=== PATIENT | female | born 1985 | race African-American/Black ===

== ENCOUNTER 2019-03-13 01:23 | Emergency (ER) | payer OTHER ==
[~2019-03-13] VITALS: Ht 157.5 cm; Wt 90.7 kg
[2019-03-13] MEDS ORDERED: GLUCOPHAGE XR500 MG PO (01:37)
[2019-03-13] MEDS ORDERED: LATUDA20 MG PO (01:37)
[2019-03-13] MEDS ORDERED: LEXAPRO 10 MG T10 M2 PO (01:38)
[2019-03-13 02:35] LABS: URINE BILIRUBIN 1+ (Negative); URINE BLOOD 1+ (Negative); URINE CLARITY SL CLOUDY; URINE COLOR YELLOW; URINE GLUCOSE-RANDOM* NEGATIVE (Negative); URINE KETONES 3+ (Negative); URINE LEUKOCYTES 2+ (Negative); URINE NITRITE NEGATIVE (Negative); URINE PROTEIN (DIPSTICK) 2+ (Negative)
[2019-03-13 02:38] LABS: ICTOTEST (BILI CONFIRMATORY) Positive (Negative); URINE REDUCING SUBSTANCE 0 %
[2019-03-13 02:42] LABS: ABSOLUTE NEUTROPHILS 7.8 thou/uL (1.4-8.2); BASOPHILS 0.3 % (0.0-2.0); EOSINOPHILS 0.1 % (0.0-3.0); HEMATOCRIT 38.1 % (37.0-47.0); LYMPHOCYTES 18.1 % (24.0-44.0); MCH 31.8 pg (26.0-34.0); MCHC 34.2 g/dL (28.0-37.0); PLATELET COUNT 306 thou/uL (150-400); POLYS 77.5 % (36.0-66.0); RDW 14.4 % (10.5-14.5); WBC 10.1 thou/uL (4.0-11.0)
[2019-03-13 02:44] LABS: BACTERIA >30 Many /HPF (None Seen); CASTS None Seen /LPF (None Seen); CRYSTALS None Seen /LPF (None Seen); MUCUS 4-6 Moderate strn/LPF (None Seen); SQUAMOUS >10 Many /LPF (0-3)
[2019-03-13 02:50] LABS: CALCIUM 9.1 mg/dL (8.5-10.1); CREATININE 0.9 mg/dL (0.6-1.0); POTASSIUM 3.5 mmol/L (3.5-5.1)
[2019-03-13] MEDS ORDERED: KEFLEX500 M1 PO (03:14)
[2019-03-13] MEDS ORDERED: ZOFRAN4 MG PO (03:14)
[2019-03-13 03:30] VITALS: BP 118/67
== END 2019-03-13 03:31 | disposition home or self-care (01) ==
LOC: ER 01:23
PROVIDERS: Student in an Organized Health Care Education/Training Program
DX: N39.0 Urinary tract infection, site not specified (principal); A59.9 Trichomoniasis, unspecified; E11.9 Type 2 diabetes mellitus without complications; F17.210 Nicotine dependence, cigarettes, uncomplicated; Z98.51 Tubal ligation status

== ENCOUNTER → 2020-10-26 | Emergency (ER) | payer OTHER ==
[~2020-10-26] VITALS: Ht 157.5 cm; Wt 81.2 kg
[~2020-10-26] MED LIST: AZITHROMYCIN500 MG PO; FLAGYL500 M1 PO; GLUCOPHAGE XR500 MG PO; KEFLEX500 M1 PO; LATUDA20 MG PO; LEXAPRO 10 MG T10 M2 PO; ZOFRAN4 MG PO
[2020-10-26 09:07] VITALS: BP 125/82
[2020-10-26 10:05] LABS: URINE BILIRUBIN NEGATIVE (Negative); URINE BLOOD 1+ (Negative); URINE CLARITY CLEAR; URINE COLOR YELLOW; URINE GLUCOSE-RANDOM* NEGATIVE (Negative); URINE KETONES NEGATIVE (Negative); URINE NITRITE-REFLEX NEGATIVE (Negative); URINE PROTEIN (DIPSTICK) NEGATIVE (Negative); URINE SPECIFIC GRAVITY 1.025 (1.005-1.035); URINE UROBILINOGEN 0.2 E.U./dl (0.2-1.0)
[2020-10-26 10:07] LABS: URINE LEUKOCYTES-REFLEX 1+ (Negative)
[2020-10-26 10:18] LABS: BACTERIA-REFLEX 1-9 Few /HPF (None Seen); CASTS None Seen /LPF (None Seen); CRYSTALS None Seen /LPF (None Seen); SQUAMOUS >10 Many /LPF (0-3); URINE RBC 3-10 Few /HPF (0-2); URINE WBC-REFLEX None Seen /HPF (0-5)
== END ==
LOC: ER 08:33
PROVIDERS: Emergency Medicine
DX: N76.0 Acute vaginitis (principal); E11.9 Type 2 diabetes mellitus without complications; F17.210 Nicotine dependence, cigarettes, uncomplicated; Z79.899 Other long term (current) drug therapy

== ENCOUNTER 2021-04-09 21:37 | Emergency (ER) | payer OTHER ==
[~2021-04-09] VITALS: Ht 157.5 cm; Wt 85.7 kg
[2021-04-09 21:54] LABS: URINE BILIRUBIN NEGATIVE (Negative); URINE BLOOD 1+ (Negative); URINE CLARITY CLEAR; URINE COLOR YELLOW; URINE GLUCOSE-RANDOM* NEGATIVE (Negative); URINE KETONES NEGATIVE (Negative); URINE LEUKOCYTES-REFLEX NEGATIVE (Negative); URINE NITRITE-REFLEX NEGATIVE (Negative); URINE PROTEIN (DIPSTICK) NEGATIVE (Negative); URINE SPECIFIC GRAVITY 1.015 (1.005-1.035); URINE UROBILINOGEN 0.2 E.U./dl (0.2-1.0)
[2021-04-09 22:05] LABS: SQUAMOUS >10 Many /LPF (0-3)
[2021-04-09 22:06] LABS: MUCUS >6 Heavy strn/LPF (None Seen)
[2021-04-09 22:07] LABS: BACTERIA-REFLEX None Seen /HPF (None Seen); CASTS None Seen /LPF (None Seen); CRYSTALS None Seen /LPF (None Seen); URINE WBC-REFLEX 0-5 Rare /HPF (0-5)
[2021-04-09 22:08] LABS: URINE RBC 3-10 Few /HPF (NONE SEEN)
[2021-04-09 23:36] VITALS: BP 112/73
== END 2021-04-09 23:36 | disposition home or self-care (01) ==
LOC: ER 21:37
PROVIDERS: Emergency Medicine
DX: R35.0 Frequency of micturition (principal); M54.5 Low back pain; F12.90 Cannabis use, unspecified, uncomplicated; E11.9 Type 2 diabetes mellitus without complications; F17.210 Nicotine dependence, cigarettes, uncomplicated; Z79.899 Other long term (current) drug therapy; Z98.51 Tubal ligation status; Z98.890 Other specified postprocedural states